=== PATIENT | female | born 1965 ===

== ENCOUNTER 2016-09-14 20:54 | Emergency (ER) | payer BC ==
[2016-09-14 20:55] VITALS: BMI 26.4
[2016-09-14 21:01] VITALS: PULSE 110; TEMP 98.6; O2SAT 100
--- NOTE | 2016-09-14 21:41 | ED PDOC ---
Arrival/HPI <González Nguyen - Last Filed: 09/15/16 01:06> - General Historian: Patient <Meghana Bryson - Last Filed: 09/15/16 02:38> - General Chief Complaint: Abdominal Pain Time Seen by Provider: 09/14/16 21:03 - History of Present Illness Narrative History of Present Illness (Text): 09/14/16 21:37 51yo female with PMHx of hypertension and Diabetes present with complaint of RUQ crampy abdominal pain x 2days. States pain started after eating yesterday. states pain is constant. No relieving/exacerbating factors. Denies nausea, vomiting, diarrhea, constipation, melena, hematmesis, urinary symptoms, chest pain, SOB, fever, chills, any other complaint. (Meghana Bryson) Past Medical History - Provider Review Nursing Documentation Reviewed: Yes - Infectious Disease Hx of Infectious Diseases: None - Tetanus Immunization Tetanus Immunization: Unknown - Reproductive Menopause: Yes - Cardiac Hx Hypertension: Yes - Pulmonary Hx Respiratory Disorders: No - Neurological Hx Neurological Disorder: No - HEENT Hx HEENT Disorder: No - Renal Hx Renal Disorder: No - Endocrine/Metabolic Hx Diabetes Mellitus Type 2: Yes - Hematological/Oncological Hx Blood Disorders: No Hx Blood Transfusions: No Hx Blood Transfusion Reaction: No - Integumentary Hx Dermatological Disorder: No - Musculoskeletal/Rheumatological Hx Osteoporosis: Yes - Gastrointestinal Hx Gastrointestinal Disorders: No - Genitourinary/Gynecological Hx Genitourinary Disorders: No - Psychiatric Hx Psychophysiologic Disorder: No Hx Substance Use: No - Surgical History Hx Cholecystectomy: Yes - Anesthesia Hx Anesthesia: Yes <Meghana Bryson - Last Filed: 09/15/16 02:38> Family/Social History - Physician Review Nursing Documentation Reviewed: Yes Family/Social History: Unknown Family HX Smoking Status: Never Smoked Hx Alcohol Use: No Hx Substance Use: No <Meghana Bryson - Last Filed: 09/15/16 02:38> Allergies/Home Meds <González Nguyen - Last Filed: 09/15/16 01:06> <Meghana Bryson - Last Filed: 09/15/16 02:38> Allergies/Adverse Reactions: Allergies No Known Allergies Allergy (Verified 09/14/16 20:56) Home Medications: Home Meds Medication Instructions Recorded Confirmed metFORMIN [glucOPHAGE] 500 mg PO BID 08/19/15 09/14/16 Lisinopril 20 mg PO DAILY 08/22/15 09/14/16 Review of Systems - Physician Review All systems were reviewed & negative as marked: Yes - Review of Systems Constitutional: Normal Eyes: Normal ENT: Normal Respiratory: Normal Cardiovascular: Normal Gastrointestinal: Abdominal Pain. absent: Constipation, Diarrhea, Nausea, Vomiting, Hematochezia, Hematemesis Genitourinary Female: Normal Musculoskeletal: Normal Skin: Normal Neurological: Normal Endocrine: Normal Hemo/Lymphatic: Normal Psychiatric: Normal <Meghana Bryson A - Last Filed: 09/15/16 02:38> Physical Exam Vital Signs Reviewed: Yes Temperature: Afebrile Blood Pressure: Normal Pulse: Tachycardic Respiratory Rate: Normal Appearance: Positive for: Well-Appearing, Non-Toxic, Comfortable Pain Distress: None Mental Status: Positive for: Alert and Oriented X 3 - Systems Exam Head: Present: Atraumatic, Normocephalic Pupils: Present: PERRL Extroacular Muscles: Present: EOMI Conjunctiva: Present: Normal Mouth: Present: Moist Mucous Membranes Neck: Present: Normal Range of Motion Respiratory/Chest: Present: Clear to Auscultation, Good Air Exchange. No: Respiratory Distress, Accessory Muscle Use Cardiovascular: Present: Regular Rate and Rhythm, Normal S1, S2. No: Murmurs Abdomen: Present: Normal Bowel Sounds, Other (Soft). No: Tenderness, Distention , Peritoneal Signs, Rebound, Guarding, McBurney's Point Tender, Rovsing's Sign Present Back: Present: Normal Inspection Upper Extremity: Present: Normal Inspection. No: Cyanosis, Edema Lower Extremity: Present: Normal Inspection. No: Edema Neurological: Present: GCS=15, CN II-XII Intact, Speech Normal Skin: Present: Warm, Dry, Normal Color. No: Rashes Psychiatric: Present: Alert, Oriented x 3, Normal Insight, Normal Concentration <[employer] A - Last Filed: 09/15/16 02:38> Vital Signs Temp Pulse Resp BP Pulse Ox 09/15/16 01:12 16 140/80 09/14/16 20:56 98.6 F 110 H 17 149/81 100 09/14/16 20:55 98.6 F 110 H 17 149/81 100 Medical Decision Making <González Nguyen Filed: 09/15/16 01:06> <Meghana Bryson - Last Filed: 09/15/16 02:38> ED Course and Treatment: 09/15/16 02:36 Pt in ED for stated history. On further questioning she admitted to surgical history of cholecysectomy. she was comfortable in ED. Her lab was unremarkable. Abdominal CT IMPRESSION: 1. Diverticulosis without definite CT evidence of diverticulitis. 2. Mild biliary duct dilatation. Consider MRCP. 3. Incidental/non-acute findings are described above. She was DC home and advised to f/u with her PMD/GI. Rx of Pepcid was given. (Meghana Bryson) - Lab Interpretations Lab Results: 09/14/16 11:41 09/14/16 11:41 Lab Results 09/15/16 00:00: Urine Color Yellow, Urine Appearance Clear, Urine pH 6.0, Ur Specific [place] 1.020, Urine Protein Negative, Urine Glucose (UA) Negative, Urine Ketones Negative, Urine Blood Negative, Urine Nitrate Negative, Urine Bilirubin Negative, Urine Urobilinogen 0.2, Ur Leukocyte Esterase Negative 09/14/16 11:41: Sodium 140, Potassium 4.3, Chloride 102, Carbon Dioxide 25, Anion Gap 17, BUN 20, Creatinine 1.0, Est GFR ( Amer) > 60, Est GFR (Non- Af Amer) 58, Random Glucose 135 H, Calcium 10.1, Total Bilirubin 0.4, AST 32, ALT 45, Alkaline Phosphatase 53, Total Protein 8.5 H, Albumin 4.6, Globulin 3.9 , Albumin/Globulin Ratio 1.2, Lipase 111 09/14/16 11:41: PT 10.9, INR 1.01, APTT 25.3 09/14/16 11:41: WBC 8.4, RBC 4.42, Hgb 13.0, Hct 38.3, MCV 86.7, MCH 29.4, MCHC 33.9, RDW 12.5, Plt Count 209, MPV 12.2 H, Gran % 58.0, Lymph % (Auto) 29.6, [place] % (Auto) 7.0 H, Eos % (Auto) 4.8, Baso % (Auto) 0.6, Gran # 4.87, Lymph # 2.5, [place] # 0.6, Eos # 0.4, Baso # 0.05 - RAD Interpretation Radiology Orders: 09/14/16 21:22 ABD & PELVIS W/O PO OR IV CONT [CT] Stat - Medication Orders Current Medication Orders: Discontinued Medications Famotidine (Pepcid) 20 mg IVP STAT STA Stop: 09/14/16 22:16 Last Admin: 09/14/16 23:50 Dose: 20 mg Sodium Chloride (Sodium Chloride 0.9%) 1,000 mls @ 250 mls/hr IV .Q4H ONE Stop: 09/15/16 02:13 Last Admin: 09/14/16 23:49 Dose: 250 mls/hr - 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 VIRGIL has examined the patient and agrees with the treatment plan. <González Nguyen - Last Filed: 09/15/16 01:06> Disposition/Present on Arrival <González Nguyen - Last Filed: 09/15/16 01:06> - Present on Arrival Any Indicators Present on Arrival: No History of DVT/PE: No History of Uncontrolled Diabetes: Yes Urinary Catheter: No History of Decub. Ulcer: No History Surgical Site Infection Following: None - Disposition Have Diagnosis and Disposition been Completed?: Yes Disposition Time: 00:25 Patient Plan: Discharge <Meghana Bryson - Last Filed: 09/15/16 02:38> - Disposition Diagnosis: Abdominal pain Disposition: HOME/ ROUTINE Condition: STABLE Discharge Instructions (ExitCare): Abdominal Pain (ED) Additional Instructions: Follow up with your Doctor/[employer] Return to ED for any new or worsening symptoms Prescriptions: Famotidine [Pepcid] 20 mg PO DAILY #10 tab Referrals: Brenda Draper DO [Primary Care Provider] - Follow up with primary
--- NOTE | 2016-09-14 22:02 | CT ---
EXAM: CT Abdomen and Pelvis Without Intravenous Contrast CLINICAL HISTORY: 51 years old, female; Pain; Abdominal pain; Localized; Right upper quadrant (ruq); Additional info: Ruq pain TECHNIQUE: Axial computed tomography images of the abdomen and pelvis without intravenous contrast. This CT exam was performed using one or more of the following dose reduction techniques: automated exposure control, adjustment of the mA and/or kV according to patient size, and/or use of iterative reconstruction technique. Coronal and sagittal reformatted images were created and reviewed. COMPARISON: No relevant prior studies available. FINDINGS: Limitations: Motion artifact - mild. Lower thorax: No acute findings. ABDOMEN: Liver: Unremarkable. Gallbladder and bile ducts: Cholecystectomy. Mildly dilated common bile duct. Pancreas: Unremarkable. No ductal dilation. Spleen: No splenomegaly. Adrenals: No mass. Kidneys and ureters: No renal calculi. No hydronephrosis. Stomach and bowel: Scattered diverticula within colon. No associated inflammatory stranding. Underdistention of LEFT colon. No definite mural thickening. No obstruction. Appendix: Normal caliber. No inflammation. PELVIS: Bladder: Unremarkable. No stones. Reproductive: Unremarkable as visualized. ABDOMEN and PELVIS: Intraperitoneal space: No significant fluid collection. No free air. Bones/joints: No acute fracture. Soft tissues: Unremarkable. Vasculature: Minimal atherosclerotic disease. No abdominal aortic aneurysm. Lymph nodes: No pathologically enlarged lymph nodes. IMPRESSION: 1. Diverticulosis without definite CT evidence of diverticulitis. 2. Mild biliary duct dilatation. Consider MRCP. 3. Incidental/non-acute findings are described above.
[2016-09-14] MEDS ORDERED: Sodium Chloride 0.9% 1,000 ML IV ONE (22:14)
[2016-09-14 23:47] LABS: ADD MANUAL DIFF? NO
[2016-09-14 23:54] LABS: BASO # 0.05 K/mm3 (0.0-2.0); BASO % 0.6 % (0.0-3.0); EOS # 0.4 (0.0-0.7); EOS % 4.8 % (1.5-5.0); GRAN # 4.87 (1.4-6.5); HEMATOCRIT 38.3 % (36.0-48.0); LYMPH # 2.5 (1.2-3.4); LYMPH % 29.6 % (22.0-35.0); MEAN CELL VOLUME 86.7 fL (80.0-105.0); MEAN CORPUSCULAR HEMOGLOBIN 29.4 pg (25.0-35.0); MEAN CORPUSCULAR HGB CONC 33.9 g/dl (31.0-37.0); MEAN PLATELET VOLUME 12.2 fl (7.0-11.0); MONO # 0.6 (0.1-0.6); PLATELET COUNT 209 10^3/uL (120.0-450.0); RED CELL DISTRIBUTION WIDTH 12.5 % (11.5-14.5); WHITE BLOOD COUNT 8.4 10^3/ul (4.5-11.0)
[2016-09-15 00:04] LABS: INR 1.01 (0.93-1.08); PARTIAL THROMBOPLASTIN TIME 25.3 Seconds (23.7-30.8)
[2016-09-15 00:07] LABS: ALB/GLOB RATIO 1.2 (1.1-1.8); ALKALINE PHOSPHATASE 53 U/L (38-133); ALT/SGPT 45 U/L (7-56); AST/SGOT 32 U/L (15-39); BILIRUBIN,TOTAL 0.4 mg/dL (0.2-1.3); BLOOD UREA NITROGEN 20 mg/dL (7-21); CALCIUM 10.1 mg/dL (8.4-10.5); CARBON DIOXIDE 25 mmol/L (21-33); CHLORIDE 102 mmol/L (98-107); GFR AFRICAN-AMERICAN > 60; GLUCOSE,RANDOM 135 mg/dL (70-110); LIPASE 111 U/L (23-300); POTASSIUM 4.3 mmol/L (3.6-5.0); SODIUM 140 mmol/L (132-148); TOTAL PROTEIN 8.5 g/dL (5.8-8.3)
[2016-09-15 00:26] LABS: URINE BILIRUBIN NEGATIVE (NEGATIVE); URINE BLOOD NEGATIVE (NEGATIVE); URINE GLUCOSE (UA) NEGATIVE (NEGATIVE); URINE KETONE NEGATIVE (NEGATIVE); URINE LEUKOCYTE ESTERASE NEGATIVE Leu/uL (NEGATIVE); URINE PROTEIN NEGATIVE mg/dL (<30 mg/dL); URINE UROBILINOGEN 0.2 E.U./dL (<1 E.U./dL)
[2016-09-15 00:29] LABS: URINE APPEARANCE CLEAR (CLEAR); URINE COLOR YELLOW (YELLOW)
[2016-09-15 01:13] VITALS: BP 140/80; RESP 16
== END 2016-09-15 01:14 | disposition home or self-care (01) ==
LOC: ED 20:54
DX: R10.11 Right upper quadrant pain (principal); I10 Essential (primary) hypertension; E11.9 Type 2 diabetes mellitus without complications
CPT/HCPCS: 74176; 80053; 81003; 83690; 85025; 85610; 85730; 96374; 99283; J7040

== ENCOUNTER 2016-11-25 11:33 | Emergency (ER) | payer BC ==
[2016-11-25 11:33] VITALS: BMI 26.4
[2016-11-25 12:24] VITALS: RESP 20
--- NOTE | 2016-11-25 12:25 | ED PDOC ---
Arrival/HPI - General Chief Complaint: Upper Extremity Problem/Injury Time Seen by Provider: 11/25/16 12:14 Historian: Patient - History of Present Illness Narrative History of Present Illness (Text): 11/25/16 12:17 A 51 year old female whose past medical history includes, hypertension and diabetes, presents to the emergency department with left shoulder pain. 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 She notes that this morning she started feeling pain in the shoulder after moving luggage at work. The patient denies fevers, chills, headache, chest pain, shortness of breath, cough, abdominal pain, nausea, vomiting, diarrhea dizziness or any other complaint. PMD: Dr. Draper Time/Duration: Prior to Arrival Symptom Course: Unchanged Activities at Onset: Rest, Light Context: Home Past Medical History - Provider Review Nursing Documentation Reviewed: Yes - Infectious Disease Hx of Infectious Diseases: None - Tetanus Immunization Tetanus Immunization: Unknown - Reproductive Menopause: Yes - Cardiac Hx Hypertension: Yes - Pulmonary Hx Respiratory Disorders: No - Neurological Hx Neurological Disorder: No - HEENT Hx HEENT Disorder: No - Renal Hx Renal Disorder: No - Endocrine/Metabolic Hx Diabetes Mellitus Type 2: Yes - Hematological/Oncological Hx Blood Disorders: No Hx Blood Transfusions: No Hx Blood Transfusion Reaction: No - Integumentary Hx Dermatological Disorder: No - Musculoskeletal/Rheumatological Hx Osteoporosis: Yes - Gastrointestinal Hx Gastrointestinal Disorders: No - Genitourinary/Gynecological Hx Genitourinary Disorders: No - Psychiatric Hx Psychophysiologic Disorder: No Hx Substance Use: No - Surgical History Hx Cholecystectomy: Yes - Anesthesia Hx Anesthesia: Yes Family/Social History - Physician Review Nursing Documentation Reviewed: Yes Family/Social History: No Known Family HX Smoking Status: Never Smoked Hx Alcohol Use: No Hx Substance Use: No Allergies/Home Meds Allergies/Adverse Reactions: Allergies No Known Allergies Allergy (Verified 09/14/16 20:56) Home Medications: Home Meds Medication Instructions Recorded Confirmed metFORMIN [glucOPHAGE] 500 mg PO BID 08/19/15 09/14/16 Lisinopril 20 mg PO DAILY 08/22/15 09/14/16 Review of Systems - Physician Review All systems were reviewed & negative as marked: Yes - Review of Systems Constitutional: absent: Fevers, Night Sweats Respiratory: absent: SOB, Cough Cardiovascular: absent: Chest Pain Gastrointestinal: absent: Abdominal Pain, Diarrhea, Nausea, Vomiting Musculoskeletal: Other (Left shoulder pain) Neurological: absent: Headache, Dizziness Physical Exam Vital Signs Reviewed: Yes Vital Signs Temp Pulse Resp BP Pulse Ox 11/25/16 13:41 98.8 F 75 20 134/65 100 11/25/16 12:23 100 H 20 142/65 98 11/25/16 12:02 99.7 F H 102 H 16 150/88 100 Temperature: Febrile Blood Pressure: Normal Pulse: Tachycardic Respiratory Rate: Normal Appearance: Positive for: Well-Appearing, Non-Toxic, Comfortable Pain Distress: None Mental Status: Positive for: Alert and Oriented X 3 - Systems Exam Head: Present: Atraumatic, Normocephalic Pupils: Present: PERRL Extroacular Muscles: Present: EOMI Conjunctiva: Present: Normal Mouth: Present: Moist Mucous Membranes Neck: Present: Normal Range of Motion Respiratory/Chest: Present: Clear to Auscultation, Good Air Exchange. No: Respiratory Distress, Accessory Muscle Use Cardiovascular: Present: Regular Rate and Rhythm, Normal S1, S2. No: Murmurs Abdomen: Present: Normal Bowel Sounds. No: Tenderness, Distention, Peritoneal Signs Back: Present: Normal Inspection Upper Extremity: Present: Other (left shoulder pain with movement. Mild decrease in strenghth due to pain. Full sensation intact.) Lower Extremity: Present: Normal Inspection. No: Edema Neurological: Present: GCS=15, CN II-XII Intact, Speech Normal Skin: Present: Warm, Dry, Normal Color. No: Rashes Psychiatric: Present: Alert, Oriented x 3, Normal Insight, Normal Concentration Medical Decision Making ED Course and Treatment: 11/25/16 12:16 Impression: A 51 year old female with a complaint of left shoulder pain with movement. Differential Diagnosis included but are not limited to: Shoulder Strain vs. Rotator Cuff Tear Plan: -- Left Shoulder X-Ray -- Toradol and Flexeril -- Reassess and disposition Prior Visits: Notes and results from previous visits were reviewed. Patient was last seen in the emergency department on Progress Notes: Patient's xray was negative for fracture or separation or dislocation. Gave patient a sling for support and advised her to follow up with an orthopedic physician. They state they will get one via the doctors from her job. Advised her to return to the ED if symptoms worsen or any other concern. She verbalized understanding of discharge instructions. - RAD Interpretation Radiology Orders: 11/25/16 12:15 SHOULDER LEFT [RAD] Stat - Medication Orders Current Medication Orders: Discontinued Medications Cyclobenzaprine HCl (Flexeril) 5 mg PO STAT STA Stop: 11/25/16 12:16 Last Admin: 11/25/16 12:27 Dose: 5 mg Ketorolac Tromethamine (Toradol) 60 mg IM STAT STA Stop: 11/25/16 12:16 Last Admin: 11/25/16 12:28 Dose: 60 mg - Scribe Statement The provider has reviewed the documentation as recorded by the Michelle Norton Provider Scribe Attestation: All medical record entries made by the Scribe were at my direction and personally dictated by me. I have reviewed the chart and agree that the record accurately reflects my personal performance of the history, physical exam, medical decision making, and the department course for this patient. I have also personally directed, reviewed, and agree with the discharge instructions and disposition. Disposition/Present on Arrival - Present on Arrival Any Indicators Present on Arrival: Yes History of DVT/PE: No History of Uncontrolled Diabetes: Yes Urinary Catheter: No History of Decub. Ulcer: No History Surgical Site Infection Following: None - Disposition Have Diagnosis and Disposition been Completed?: Yes Diagnosis: Shoulder strain Disposition: HOME/ ROUTINE Disposition Time: 13:42 Patient Plan: Discharge Condition: IMPROVED Additional Instructions: Ms Howell thank you for letting us take care of you today. Your provider was Dr. Honeycutt. You were treated for Shoulder Strain. The emergency medical care you received today was directed at your acute symptoms. If you were prescribed any medication, please fill it and take as directed. It may take several days for your symptoms to resolve. Return to the Emergency Department if your symptoms worsen, do not improve, or if you have any other problems. Please contact your doctor or call one of the physicians/clinics you have been referred to that are listed on the Patient Visit Information form that is included in your discharge packet. Bring any paperwork you were given at discharge with you along with any medications you are taking to your follow up visit. Our treatment cannot replace ongoing medical care by a primary care provider (PCP) outside of the emergency department. Thank you for allowing the [facility] team to be part of your care today. If you had an X-Ray or CT scan: A Radiologist will review the ED reading if any change in treatment is needed we will contact you. If you had a blood, urine, or wound culture: It will take several days for the results, if any change in treatment is needed we will contact you. If you had an STI test: It will take 48 hours for the results. Please call after 1 week if you have not heard back. Prescriptions: Cyclobenzaprine [Flexeril] 5 mg PO Q8 PRN #14 tab PRN Reason: Muscle Spasm Naproxen 500 mg PO BID PRN #30 tab PRN Reason: Pain, Moderate (4-7) Referrals: PCP,NO [Primary Care Provider] - Follow up with primary Forms: [employer] ([place]azi), WORK NOTE
[2016-11-25 13:42] VITALS: BP 134/65; PULSE 75; TEMP 98.8; O2SAT 100
--- NOTE | 2016-11-25 17:21 | RAD ---
PROCEDURE: Radiographs of the Left Shoulder HISTORY: pain r/o fx COMPARISON: No prior. FINDINGS: BONES: Normal. No fracture. JOINTS: Normal. Glenohumeral and acromioclavicular joints preserved. No osteoarthritis. SOFT TISSUES: Normal. OTHER FINDINGS: None. IMPRESSION: Normal radiographs of the left shoulder.
== END 2016-11-25 13:43 | disposition home or self-care (01) ==
LOC: ED 11:33
DX: S46.912A Strain of unspecified muscle, fascia and tendon at shoulder and upper arm level, left arm, initial encounter (principal); X50.0XXA Overexertion from strenuous movement or load, initial encounter; Y99.0 Civilian activity done for income or pay; I10 Essential (primary) hypertension; E11.9 Type 2 diabetes mellitus without complications
CPT/HCPCS: 73030; 96372; 99284; J1885